=== PATIENT | male | born 1965 | race Asian ===

== ENCOUNTER 2021-10-15 00:48 | Emergency (ER) | payer OTHER ==
[~2021-10-15] VITALS: Ht 177.8 cm; Wt 74.8 kg
[2021-10-15] MEDS ORDERED: LET TOPICAL SOLUTION 8 ML UDC TP ONE (01:15)
[2021-10-15] MEDS ORDERED: SILVER NITRATE APPLICATOR STICK EACH TP ONE ×2 (01:15→01:31)
[2021-10-15] MEDS ORDERED: OXYMETAZOLINE NASAL 0.05% 15 ML SPRAY NS ONE ×2 (01:15→01:31)
[2021-10-15] MEDS ORDERED: LET TOPICAL SOLUTION 8 ML UDC ONE ×2 (01:30→01:31)
[2021-10-15 02:49] LABS: HEMATOCRIT 41.7 % (36.7-47.1); MEAN CORPUSCULAR HEMOGLOBIN 30.1 uug (23.8-33.4); MEAN CORPUSCULAR VOLUME 88.8 fL (73.0-96.2); PLATELET COUNT (AUTO) 137 K/uL (152-348)
[2021-10-15 03:10] LABS: BILIRUBIN,DIRECT 0.1 mg/dL (0.0-0.2); BILIRUBIN,TOTAL 0.6 mg/dL (0.2-1.0); TOTAL PROTEIN, SERUM 6.8 g/dL (6.4-8.2)
[2021-10-15] MEDS ORDERED: CLONIDINE HCL 0.1 MG TABLET ONE (06:13)
--- NOTE | 2021-10-15 06:14 | NUR ---
Patient discharged to home in stable condition. Written and verbal after care instructions given. Patient verbalizes understanding of instructions. Stressed follow up or return to ER for worsening s/s.
[2021-10-15 06:15] VITALS: BP 148/89
[2021-10-15] MEDS ORDERED: CLONIDINE HCL 0.1 MG TABLET PO ONE (06:15)
== END 2021-10-15 06:15 | disposition home or self-care (01) ==
LOC: ER 00:55
DX: R04.0 Epistaxis (principal)
CPT/HCPCS: 36415; 85025; 85610; A4663